=== PATIENT | female | born 1960 | race Two or more races ===

== ENCOUNTER 2019-05-26 13:23 | Outpatient (CLI) | payer OTHER | END 2019-05-26 13:39 | disposition home or self-care (01) | LOC: SONOGRAMA 13:23 → MAMO-SONO 14:15 | DX: N84.0 Polyp of corpus uteri (principal) ==

== ENCOUNTER 2019-07-07 05:55 | Day surgery (SDC) | payer OTHER ==
[~2019-07-07 05:55] MED LIST: LOSARTAN-HCTZ1 EAC2 PO; SYNTHROID175 MCG PO
[2019-07-07] MEDS ORDERED: IBU600 MG PO (08:47)
== END 2019-07-07 14:20 | disposition home or self-care (01) ==
LOC: CIR.AMB 05:55 → ADM 11:00 → CIR.AMB 11:15
DX: N84.0 Polyp of corpus uteri (principal)

== ENCOUNTER 2022-01-09 07:26 | Day surgery (SDC) | payer OTHER ==
[~2022-01-09] VITALS: Ht 154.9 cm; Wt 99.8 kg
[~2022-01-09 07:26] MED LIST changes: +DICY20TA; +IBU600 MG PO; +POTASSIUM CHLO10 MEQ; +SYNTHROID112 MCG; +ZYRTEC10 M3
[2022-01-09] MEDS ORDERED: IBU600 MG PO (10:00)
== END 2022-01-09 12:35 | disposition home or self-care (01) ==
LOC: CIR.AMB 07:26
PROVIDERS: ATTEND Obstetrics & Gynecology Gynecology
DX: N84.0 Polyp of corpus uteri (principal); I10 Essential (primary) hypertension; E03.9 Hypothyroidism, unspecified; F41.9 Anxiety disorder, unspecified; F17.210 Nicotine dependence, cigarettes, uncomplicated; Z85.850 Personal history of malignant neoplasm of thyroid; Z86.16 Personal history of COVID-19; Z20.822 Contact with and (suspected) exposure to COVID-19

== ENCOUNTER 2023-08-06 05:40 | Day surgery (SDC) | payer OTHER ==
[2023-08-06] MEDS ORDERED: POVIDONE-IODINE 118 ML BOTT TOP ONE (08:00)
== END 2023-08-06 10:55 | disposition home or self-care (01) ==
LOC: CIR.AMB 05:40
PROVIDERS: ATTEND Obstetrics & Gynecology Gynecology
DX: N95.0 Postmenopausal bleeding (principal); N85.00 Endometrial hyperplasia, unspecified; I10 Essential (primary) hypertension